=== PATIENT | male | born 1945 | race Caucasian/White ===

== ENCOUNTER 2018-12-16 11:50 | Emergency (ER) | payer MEDICARE, BC ==
[~2018-12-16] VITALS: Ht 172.7 cm; Wt 65.8 kg
[~2018-12-16 11:50] MED LIST: ATOR20TA PO; CARV12.52 PO; HYDR25TA4 PO; LACT1CAP71 PO; LEVO500T90 PO; LOSA100T31 PO; TAMS0.4C34 PO
--- NOTE | 2018-12-16 12:05 | NUR ---
TO ER BED 10, WITH NO COMPLAIN "I JUST WANTED TO TALK TO SOMEBODY". KEPT WARM AND COMFORTABLE, AWAITING MD ATWOOD
--- NOTE | 2018-12-16 12:16 | NUR ---
DR ROYAL AT BEDSIDE
[2018-12-16 12:31] VITALS: BP 121/76
--- NOTE | 2018-12-16 12:31 | NUR ---
Patient discharged to home in stable condition. Written and verbal after care instructions given. Patient verbalizes understanding of instruction.
== END 2018-12-16 12:31 | disposition home or self-care (01) ==
LOC: ER 11:58
DX: R53.1 Weakness (principal); I10 Essential (primary) hypertension; E78.00 Pure hypercholesterolemia, unspecified
CPT/HCPCS: Z7502

== ENCOUNTER 2020-01-05 09:55 | Emergency (ER) | payer MEDICARE, BC ==
[~2020-01-05] VITALS: Ht 167.6 cm; Wt 63.5 kg
--- NOTE | 2020-01-05 10:05 | NUR ---
patient came in to the er c/o Weak/Fall "Been feeling weak last couple days I think im dehydrated. Fell yesterday". On room air, breathing evenly and unlabored. connected to the monitor and pulse ox. kept comfortable, will continue to monitor accordingly.
[2020-01-05] MEDS ORDERED: IV NS 0.9% 500 ML BAG IV ONE (10:30)
[2020-01-05 10:34] LABS: BASOPHILS # (AUTO) 0.1 /CMM (0.0-0.2); BASOPHILS % (AUTO) 1.1 % (0.0-2.0); EOSINOPHILS % (AUTO) 6.6 % (0.0-6.0); HEMATOCRIT 38 % (39-51); HEMOGLOBIN 12.6 g/dL (13.5-17.5); LYMPHOCYTES # (AUTO) 0.5 /CMM (0.8-4.8); LYMPHOCYTES % (AUTO) 11.8 % (20.0-44.0); MEAN CORPUSCULAR HGB CONC 33 g/dl (31.0-36.0); MEAN CORPUSCULAR VOLUME 99 fL (80-96); MONOCYTES # (AUTO) 0.3 /CMM (0.1-1.30); MONOCYTES % (AUTO) 7.5 % (2.0-12.0); NEUTROPHILS # (AUTO) 3.4 /CMM (1.8-8.9); PLATELET COUNT (AUTO) 249 /CMM (150-450); RED BLOOD CELL COUNT(AUTO) 3.81 MIL/uL (4.5-6.0); WHITE BLOOD COUNT (AUTO) 4.6 K/uL (4.3-11.0)
[2020-01-05 10:41] LABS: CALCIUM, SERUM 9.4 mg/dL (8.5-10.1); CREATININE 1.2 mg/dL (0.6-1.3); POTASSIUM 4.2 mmol/L (3.5-5.1)
[2020-01-05 10:46] LABS: ALBUMIN 3.8 g/dL (3.4-5.0); BILIRUBIN,DIRECT 0.2 mg/dL (0.0-0.2); BILIRUBIN,TOTAL 0.4 mg/dL (0.2-1.0); TOTAL PROTEIN, SERUM 7.5 g/dL (6.4-8.2)
[2020-01-05 10:53] LABS: APPEARANCE,URINE Clear (CLEAR); BILIRUBIN,URINE Negative (NEGATIVE); BLOOD, URINE Negative Ery/uL (NEGATIVE); COLOR,URINE Yellow (YELLOW); KETONES,URINE Negative (NEGATIVE); LEUKOCYTE ESTERASE ,URINE Negative (NEGATIVE); NITRITE, URINE Negative (NEGATIVE); PROTEIN,URINE Negative (NEGATIVE); UGLUCOSE Negative (NEGATIVE); UROBILINOGEN,URINE 0.2 EU/dL (0.2)
--- NOTE | 2020-01-05 11:17 | NUR ---
wheeled patient via rney for ct scan
--- NOTE | 2020-01-05 11:28 | NUR ---
Pt is back from the ct scan.
[2020-01-05 12:12] VITALS: BP 110/66
--- NOTE | 2020-01-05 12:14 | NUR ---
Patient discharged to home in stable condition. Written and verbal after care instructions given. Patient verbalizes understanding of instruction.IV removed. Catheter intact and site benign. Pressure and 4x4 applied to site. No bleeding noted.
== END 2020-01-05 12:14 | disposition home or self-care (01) ==
LOC: ER 09:58
DX: R53.1 Weakness (principal); E87.1 Hypo-osmolality and hyponatremia; I10 Essential (primary) hypertension; E78.00 Pure hypercholesterolemia, unspecified; Z60.2 Problems related to living alone; Z79.899 Other long term (current) drug therapy
CPT/HCPCS: 36415; 70450; 70486; 72125; 80048; 80076; 81001; 82962; 85025; 99285; J7040; 81000-TC

== ENCOUNTER 2020-01-21 10:06 | Emergency (ER) | payer MEDICARE, BC ==
[~2020-01-21] VITALS: Ht 172.7 cm; Wt 70.3 kg
[2020-01-21] MEDS ORDERED: IV NS 0.9% 1,000 ML BAG IV ONE (10:30)
--- NOTE | 2020-01-21 10:37 | NUR ---
patient came in to the er c/o weakness 1 1/2 days and "i feel dehydrated". On room air, breathing evenly and unlabored. connected to the monitor and pulse ox. kept comfortable, will continue to monitor accordingly.
[2020-01-21] MEDS ORDERED: VALS320T16 PO (11:09)
[2020-01-21] MEDS ORDERED: BUDE10.2 INH (11:09)
[2020-01-21] MEDS ORDERED: DUTA0.5C16 PO (11:09)
[2020-01-21] MEDS ORDERED: IMIP25TA6 PO (11:09)
[2020-01-21] MEDS ORDERED: FLUT1BLS INH (11:09)
[2020-01-21] MEDS ORDERED: AMLO5TAB9 PO (11:09)
[2020-01-21] MEDS ORDERED: ALBU18HF2 INH (11:09)
[2020-01-21 11:10] VITALS: BP 140/81
== END 2020-01-21 11:10 | disposition home or self-care (01) ==
LOC: ER 10:17
DX: E86.0 Dehydration (principal); I10 Essential (primary) hypertension; E78.00 Pure hypercholesterolemia, unspecified; Z60.2 Problems related to living alone; Z79.899 Other long term (current) drug therapy
CPT/HCPCS: 82962; 96360; 99283; J7030

== ENCOUNTER 2020-02-06 08:11 | Emergency (ER) | payer MEDICARE, BC ==
[~2020-02-06] VITALS: Ht 172.7 cm; Wt 72.6 kg
[~2020-02-06 08:11] MED LIST changes: +ALBU18HF2 INH; +AMLO5TAB9 PO; +BUDE10.2 INH; -CARV12.52 PO; +DUTA0.5C16 PO; +FLUT1BLS INH; -HYDR25TA4 PO; +IMIP25TA6 PO; -LEVO500T90 PO; -LOSA100T31 PO; +VALS320T16 PO
--- NOTE | 2020-02-06 08:12 | NUR ---
CAME IN FOR WORSENING SOB, TO ER BED 8, HOOKED TO MONITOR AND POX, O2 SATURATION AT 98% RA, PROVIDED W PILLABRAN AND BLANKET, DR YU AT BEDSIDE
--- NOTE | 2020-02-06 08:42 | NUR ---
WAREHOUSE CONSULTANT AT BEDSIDE
[2020-02-06 08:50] LABS: BASOPHILS % (AUTO) 0.7 % (0.0-2.0); EOSINOPHILS % (AUTO) 7.2 % (0.0-6.0); HEMATOCRIT 34 % (39-51); HEMOGLOBIN 11.4 g/dL (13.5-17.5); LYMPHOCYTES # (AUTO) 0.8 /CMM (0.8-4.8); LYMPHOCYTES % (AUTO) 25.6 % (20.0-44.0); MEAN CORPUSCULAR HGB CONC 34 g/dl (31.0-36.0); MEAN CORPUSCULAR VOLUME 98 fL (80-96); MONOCYTES # (AUTO) 0.3 /CMM (0.1-1.30); MONOCYTES % (AUTO) 10.5 % (2.0-12.0); NEUTROPHILS # (AUTO) 1.7 /CMM (1.8-8.9); PLATELET COUNT (AUTO) 239 /CMM (150-450); RED BLOOD CELL COUNT(AUTO) 3.46 MIL/uL (4.5-6.0); WHITE BLOOD COUNT (AUTO) 3.1 K/uL (4.3-11.0)
[2020-02-06 09:08] LABS: CARBON DIOXIDE 26 mmol/L (21-32); CHLORIDE 96 mmol/L (98-107); CREATININE 0.9 mg/dL (0.6-1.3); GLUCOSE 92 mg/dL (74-106); POTASSIUM 4.1 mmol/L (3.5-5.1); SODIUM SERUM 132 mmol/L (136-145); UREA NITROGEN, BLOOD 9 mg/dL (7-18)
[2020-02-06 09:15] LABS: B-TYPE NATRIURETIC PEPTIDE 297 PG/ML (0-125)
[2020-02-06] MEDS ORDERED: ALBUTEROL FS 2.5 MG/3 ML VIAL.NEB ONE (09:27)
[2020-02-06] MEDS ORDERED: IPRATROPIUM NEB FS 0.5 MG/2.5 ML AMPUL.NEB ONE (09:27)
[2020-02-06] MEDS ORDERED: IV NS 0.9% 500 ML IV ONE (09:30)
[2020-02-06] MEDS ORDERED: IPRATROPIUM NEB FS 0.5 MG/2.5 ML AMPUL.NEB NEB ONE (09:30)
[2020-02-06] MEDS ORDERED: ALBUTEROL FS 2.5 MG/3 ML VIAL.NEB NEB ONE (09:30)
--- NOTE | 2020-02-06 09:30 | NUR ---
PATIENT REFUSED BREATHING TX, MADE MD AWARE
--- NOTE | 2020-02-06 10:10 | NUR ---
IV removed. Catheter intact and site benign. Pressure and 4x4 applied to site. No bleeding noted.Patient discharged to home in stable condition. Written and verbal after care instructions given. Patient verbalizes understanding of instruction.
[2020-02-06 10:11] VITALS: BP 141/87
== END 2020-02-06 10:11 | disposition home or self-care (01) ==
LOC: ER 08:11
DX: E86.0 Dehydration (principal); J44.9 Chronic obstructive pulmonary disease, unspecified; I10 Essential (primary) hypertension; E78.5 Hyperlipidemia, unspecified; N40.0 Benign prostatic hyperplasia without lower urinary tract symptoms; F17.200 Nicotine dependence, unspecified, uncomplicated; Z60.2 Problems related to living alone; Z79.899 Other long term (current) drug therapy
CPT/HCPCS: 36415; 71045; 80048; 83880; 84484; 85025; 93005 ×2; 99285; J7040

== ENCOUNTER 2020-02-15 07:09 | Emergency (ER) | payer MEDICARE, BC ==
[~2020-02-15] VITALS: Ht 172.7 cm; Wt 70.3 kg
--- NOTE | 2020-02-15 07:23 | NUR ---
PATIENT CAME TO ER BED 11 C/O "I FEEL DRY AND DEHYDRATED." PATIENT STATES THAT HE WAKE SUP IN THE MDIDLE OF THE NIGHT TO URINATE AND HE FEELS DRY. PATIENT DENIES PAIN, SOB, DIZZINESS, NOR NAUSEA. PATIENT IS AAOX4. BREATHING EVENLY AND UNLABORED ON ROOM AIR.
--- NOTE | 2020-02-15 07:24 | NUR ---
REPORT GIVEN TO MORTEZA DUNNE FOR PACO.
[2020-02-15] MEDS ORDERED: IV NS 0.9% 1,000 ML BAG IV ONE (07:30)
[2020-02-15 07:47] LABS: BASOPHILS % (AUTO) 0.8 % (0.0-2.0); EOSINOPHILS % (AUTO) 6.1 % (0.0-6.0); HEMATOCRIT 36 % (39-51); HEMOGLOBIN 11.9 g/dL (13.5-17.5); LYMPHOCYTES # (AUTO) 0.8 /CMM (0.8-4.8); LYMPHOCYTES % (AUTO) 22.5 % (20.0-44.0); MEAN CORPUSCULAR HGB CONC 33 g/dl (31.0-36.0); MEAN CORPUSCULAR VOLUME 98 fL (80-96); MONOCYTES # (AUTO) 0.4 /CMM (0.1-1.30); MONOCYTES % (AUTO) 10.3 % (2.0-12.0); NEUTROPHILS # (AUTO) 2.1 /CMM (1.8-8.9); NEUTROPHILS % (AUTO) 60.3 % (43.0-81.0); PLATELET COUNT (AUTO) 245 /CMM (150-450); RED BLOOD CELL COUNT(AUTO) 3.66 MIL/uL (4.5-6.0); WHITE BLOOD COUNT (AUTO) 3.6 K/uL (4.3-11.0)
[2020-02-15 07:54] LABS: CALCIUM, SERUM 9.2 mg/dL (8.5-10.1); CREATININE 0.9 mg/dL (0.6-1.3)
[2020-02-15 08:47] VITALS: BP 138/81
== END 2020-02-15 08:48 | disposition home or self-care (01) ==
LOC: ER 07:09
DX: E86.0 Dehydration (principal); I10 Essential (primary) hypertension; E78.5 Hyperlipidemia, unspecified; J44.9 Chronic obstructive pulmonary disease, unspecified; E78.00 Pure hypercholesterolemia, unspecified; Z60.2 Problems related to living alone; Z79.899 Other long term (current) drug therapy
CPT/HCPCS: 36415; 80048; 85025; 96360; 99283; J7030

== ENCOUNTER 2020-03-13 09:49 | Emergency (ER) | payer MEDICARE, BC ==
[~2020-03-13] VITALS: Ht 167.6 cm; Wt 54.4 kg
--- NOTE | 2020-03-13 10:08 | NUR ---
Feeling weak since this morning. Patient a/ox4, ambulatory with steady gait. No distress noted. Needs attended. Dr. Olmos at bedside for eval. Patient refusing all other medical interventions except for IV fluids. Explained risks and benefits, still refused.
[2020-03-13 10:25] LABS: BASOPHILS % (AUTO) 0.6 % (0.0-2.0); EOSINOPHILS % (AUTO) 5.7 % (0.0-6.0); HEMATOCRIT 34 % (39-51); HEMOGLOBIN 11.6 g/dL (13.5-17.5); LYMPHOCYTES # (AUTO) 0.6 /CMM (0.8-4.8); LYMPHOCYTES % (AUTO) 15.8 % (20.0-44.0); MEAN CORPUSCULAR HGB CONC 34 g/dl (31.0-36.0); MEAN CORPUSCULAR VOLUME 98 fL (80-96); MONOCYTES # (AUTO) 0.4 /CMM (0.1-1.30); NEUTROPHILS # (AUTO) 2.5 /CMM (1.8-8.9); NEUTROPHILS % (AUTO) 66.9 % (43.0-81.0); PLATELET COUNT (AUTO) 255 /CMM (150-450); RED BLOOD CELL COUNT(AUTO) 3.47 MIL/uL (4.5-6.0); WHITE BLOOD COUNT (AUTO) 3.7 K/uL (4.3-11.0)
[2020-03-13] MEDS ORDERED: IV NS 0.9% 500 ML IV ONE (10:30)
[2020-03-13 10:33] LABS: CALCIUM, SERUM 8.8 mg/dL (8.5-10.1); CREATININE 0.9 mg/dL (0.6-1.3); POTASSIUM 4.1 mmol/L (3.5-5.1)
--- NOTE | 2020-03-13 11:11 | NUR ---
PATIENT REFUSED EKG, EXPLAINED RISKS AND BENEFITS STILL REFUSED.
--- NOTE | 2020-03-13 11:12 | NUR ---
Patient a/ox4, ambulatory with steady gait. No dsitress noted. IV removed. Catheter intact and site benign. Pressure and 4x4 applied to site. No bleeding noted.Patient discharged to home in stable condition. Written and verbal after care instructions given. Patient verbalizes understanding of instruction.
[2020-03-13 11:13] VITALS: BP 170/91
== END 2020-03-13 11:13 | disposition home or self-care (01) ==
LOC: ER 09:57
DX: E86.0 Dehydration (principal); R53.1 Weakness; I10 Essential (primary) hypertension; E78.5 Hyperlipidemia, unspecified; J44.9 Chronic obstructive pulmonary disease, unspecified; N40.0 Benign prostatic hyperplasia without lower urinary tract symptoms; Z60.2 Problems related to living alone; Z79.899 Other long term (current) drug therapy
CPT/HCPCS: 80048; 85025; 93005; 99284; J7040; 36415

== ENCOUNTER 2020-07-09 09:18 | Emergency (ER) | payer MEDICARE, BC ==
[~2020-07-09] VITALS: Ht 172.7 cm; Wt 70.3 kg
[~2020-07-09 09:18] MED LIST changes: +AMLO-212 PO; -AMLO5TAB9 PO
--- NOTE | 2020-07-09 09:38 | NUR ---
PT AMBULATORY TO ER CHAIR 1 C/O GENERALIZED WEAKNESS AND FEELING OF DEHYDRATION X 2 DAYS. DENIES ANY FEVER, FLU LIKE SYMPTOMS. PT SEEN IN ED MULTIPLE TIMES FOR SAME COMPLAINTS. STABLE VITALS. NAD NOTED. AWAITING MD ATWOOD.
--- NOTE | 2020-07-09 09:43 | NUR ---
DR CONDE AT BEDSIDE FOR EVAL.
[2020-07-09] MEDS ORDERED: IV NS 0.9% 1,000 ML BAG IV ONE (10:00)
[2020-07-09 10:19] LABS: BASOPHILS # (AUTO) 0.1 /CMM (0.0-0.2); BASOPHILS % (AUTO) 1.3 % (0.0-2.0); EOSINOPHILS % (AUTO) 11.2 % (0.0-6.0); HEMATOCRIT 37 % (39-51); HEMOGLOBIN 12.4 g/dL (13.5-17.5); LYMPHOCYTES # (AUTO) 0.8 /CMM (0.8-4.8); LYMPHOCYTES % (AUTO) 20.7 % (20.0-44.0); MEAN CORPUSCULAR HGB CONC 34 g/dl (31.0-36.0); MEAN CORPUSCULAR VOLUME 99 fL (80-96); MONOCYTES # (AUTO) 0.4 /CMM (0.1-1.30); MONOCYTES % (AUTO) 9.3 % (2.0-12.0); NEUTROPHILS # (AUTO) 2.2 /CMM (1.8-8.9); NEUTROPHILS % (AUTO) 57.5 % (43.0-81.0); PLATELET COUNT (AUTO) 254 /CMM (150-450); RED BLOOD CELL COUNT(AUTO) 3.75 MIL/uL (4.5-6.0); WHITE BLOOD COUNT (AUTO) 3.8 K/uL (4.3-11.0)
[2020-07-09 10:21] LABS: CREATININE 1.1 mg/dL (0.6-1.3); POTASSIUM 4.2 mmol/L (3.5-5.1)
--- NOTE | 2020-07-09 10:22 | NUR ---
PATIENT REFUSED CXR. EXPLAINED RISKS AND BENEFITS STILL REFUSED.
[2020-07-09 10:27] LABS: ALBUMIN 3.3 g/dL (3.4-5.0); BILIRUBIN,DIRECT 0.1 mg/dL (0.0-0.2); BILIRUBIN,TOTAL 0.4 mg/dL (0.2-1.0); TOTAL PROTEIN, SERUM 7.2 g/dL (6.4-8.2)
--- NOTE | 2020-07-09 10:51 | NUR ---
PATIENT A/OX4, BREATHING EVEN AND UNLABORED, NO SOB NOTED. NEEDS ATTENDED. IV removed. Catheter intact and site benign. Pressure and 4x4 applied to site. No bleeding noted.Patient discharged to home in stable condition. Written and verbal after care instructions given. Patient verbalizes understanding of instruction.
[2020-07-09 10:52] VITALS: BP 138/85
== END 2020-07-09 10:52 | disposition home or self-care (01) ==
LOC: ER 09:18
DX: R53.1 Weakness (principal); E87.1 Hypo-osmolality and hyponatremia; F10.10 Alcohol abuse, uncomplicated; E86.0 Dehydration; I10 Essential (primary) hypertension; E78.5 Hyperlipidemia, unspecified; J44.9 Chronic obstructive pulmonary disease, unspecified; E78.00 Pure hypercholesterolemia, unspecified; F17.200 Nicotine dependence, unspecified, uncomplicated; Y90.0 Blood alcohol level of less than 20 mg/100 ml; Z60.2 Problems related to living alone; Z79.899 Other long term (current) drug therapy
CPT/HCPCS: 80048; 80076; 80320; 84484; 85025; 93005; 96360; 99284; J7030; G0480

== ENCOUNTER 2020-07-15 08:38 | Emergency (ER) | payer MEDICARE, BC ==
[~2020-07-15] VITALS: Ht 167.6 cm; Wt 70.3 kg
--- NOTE | 2020-07-15 08:38 | NUR ---
PT BIB SELF C/O "I HAVING SOB AND I FEEL DEHYDRATED" PT IS AAOX4, NOT IN RESPIRATORY DISTRESS, HOOKED TO BOTTOM WORKER, KEPT RESTED AND COMFORTABLE. WILL CONTINUE TO MONITOR.
--- NOTE | 2020-07-15 08:50 | NUR ---
IV LINE ESTABLISHED BLOOD DRAWN AND SENT TO LAB.
--- NOTE | 2020-07-15 08:58 | NUR ---
SEEN AND EXAMINED BY .
[2020-07-15] MEDS ORDERED: IV NS 0.9% 1,000 ML IV ONE (09:00)
[2020-07-15 09:21] LABS: CREATININE 0.9 mg/dL (0.6-1.3); POTASSIUM 4.3 mmol/L (3.5-5.1)
[2020-07-15 09:49] VITALS: BP 138/78
--- NOTE | 2020-07-15 09:49 | NUR ---
IV removed. Catheter intact and site benign. Pressure and 4x4 applied to site. No bleeding noted. Patient discharged to home in stable condition. Written and verbal after care instructions given. Patient verbalizes understanding of instruction.
== END 2020-07-15 09:50 | disposition home or self-care (01) ==
LOC: ER 08:47
DX: E86.0 Dehydration (principal); E87.1 Hypo-osmolality and hyponatremia; I10 Essential (primary) hypertension; E78.5 Hyperlipidemia, unspecified; J44.9 Chronic obstructive pulmonary disease, unspecified; F10.10 Alcohol abuse, uncomplicated; F17.200 Nicotine dependence, unspecified, uncomplicated; Y90.9 Presence of alcohol in blood, level not specified; Z60.2 Problems related to living alone; Z79.899 Other long term (current) drug therapy
CPT/HCPCS: 36415; 80048; 96360; 99283; J7030

== ENCOUNTER 2020-07-26 08:15 | Emergency (ER) | payer MEDICARE, BC ==
[~2020-07-26] VITALS: Ht 172.7 cm; Wt 70.3 kg
[~2020-07-26 08:15] MED LIST changes: -DUTA0.5C16 PO; +DUTA0.5C37 PO
--- NOTE | 2020-07-26 08:15 | NUR ---
BIB SELF "I FEEL DEHYDRATED" PATIENT A/OX4, BREATHING EVEN AND UNLABORED, NO SOB NOTED, CHANGED INTO A GOWN, ATTACHED TO THE TOPLINE BEADING MACHINE TENDER.
--- NOTE | 2020-07-26 08:20 | NUR ---
IV LINE ESTABLISHED ON LEFT HAND G20, BLOOD DRAWN AND SENT TO LAB.
[2020-07-26] MEDS ORDERED: IV NS 0.9% 1,000 ML IV ONE (08:30)
[2020-07-26 08:37] LABS: BASOPHILS # (AUTO) 0.1 /CMM (0.0-0.2); BASOPHILS % (AUTO) 1.4 % (0.0-2.0); EOSINOPHILS % (AUTO) 3.7 % (0.0-6.0); HEMATOCRIT 34 % (39-51); HEMOGLOBIN 11.6 g/dL (13.5-17.5); LYMPHOCYTES % (AUTO) 21.5 % (20.0-44.0); MEAN CORPUSCULAR HGB CONC 34 g/dl (31.0-36.0); MEAN CORPUSCULAR VOLUME 97 fL (80-96); MONOCYTES # (AUTO) 0.4 /CMM (0.1-1.30); MONOCYTES % (AUTO) 8.2 % (2.0-12.0); NEUTROPHILS % (AUTO) 65.2 % (43.0-81.0); PLATELET COUNT (AUTO) 290 /CMM (150-450); RED BLOOD CELL COUNT(AUTO) 3.52 MIL/uL (4.5-6.0); WHITE BLOOD COUNT (AUTO) 4.6 K/uL (4.3-11.0)
[2020-07-26 08:52] LABS: CREATININE 0.9 mg/dL (0.6-1.3); POTASSIUM 3.8 mmol/L (3.5-5.1)
[2020-07-26 09:52] VITALS: BP 153/90
== END 2020-07-26 09:52 | disposition home or self-care (01) ==
LOC: ER 08:16
DX: R53.83 Other fatigue (principal); E87.1 Hypo-osmolality and hyponatremia; D64.9 Anemia, unspecified; E86.0 Dehydration; I10 Essential (primary) hypertension; E78.5 Hyperlipidemia, unspecified; J44.9 Chronic obstructive pulmonary disease, unspecified; N40.0 Benign prostatic hyperplasia without lower urinary tract symptoms; F17.200 Nicotine dependence, unspecified, uncomplicated; Z60.2 Problems related to living alone; Z79.899 Other long term (current) drug therapy
CPT/HCPCS: 36415; 71045; 80048; 85025; 93005; 96360; 99285; J7030

== ENCOUNTER 2020-08-01 08:09 | Emergency (ER) | payer MEDICARE, BC ==
[~2020-08-01] VITALS: Ht 167.6 cm; Wt 59.0 kg
[2020-08-01 08:22] VITALS: BP 122/74
[2020-08-01] MEDS ORDERED: predniSONE 20 MG TABLET ONE (08:35)
[2020-08-01] MEDS ORDERED: IPRATROPIUM NEB FS 0.5 MG/2.5 ML AMPUL.NEB ONE (08:47)
[2020-08-01] MEDS ORDERED: ALBUTEROL FS 2.5 MG/3 ML VIAL.NEB ONE (08:47)
[2020-08-01] MEDS: ALBUTEROL FS 2.5 MG/3 ML VIAL.NEB NEB ONE (08:51)
[2020-08-01] MEDS: IPRATROPIUM NEB FS 0.5 MG/2.5 ML AMPUL.NEB NEB ONE (08:51)
[2020-08-01] MEDS: IV NS 0.9% 1,000 ML BAG IV ONE (08:57)
[2020-08-01] MEDS: predniSONE 20 MG TABLET PO ONE (08:57)
--- NOTE | 2020-08-01 08:58 | NUR ---
ONGOING BREATHING TX
== END 2020-08-01 09:40 | disposition home or self-care (01) ==
LOC: ER 08:13
DX: E86.0 Dehydration (principal); R06.02 Shortness of breath; I10 Essential (primary) hypertension; E78.5 Hyperlipidemia, unspecified; J44.9 Chronic obstructive pulmonary disease, unspecified; F10.10 Alcohol abuse, uncomplicated; E78.00 Pure hypercholesterolemia, unspecified; F17.200 Nicotine dependence, unspecified, uncomplicated; Y90.9 Presence of alcohol in blood, level not specified; Z60.2 Problems related to living alone; Z79.899 Other long term (current) drug therapy
CPT/HCPCS: 71045; 94640; 96360; 99283; J7030; J7512

== ENCOUNTER 2020-08-02 07:30 | Emergency (ER) | payer MEDICARE, BC ==
[~2020-08-02] VITALS: Ht 167.6 cm; Wt 67.1 kg
--- NOTE | 2020-08-02 08:15 | NUR ---
"I feel dehydrated. Was here yesterday for same" Patient a/ox4, breathing even and unlabored, no sob noted, needs attended. Patient kept saying "i dont know why i'm here".
[2020-08-02] MEDS ORDERED: IV NS 0.9% 1,000 ML BAG IV ONE (08:30)
[2020-08-02 08:33] LABS: BASOPHILS # (AUTO) 0.1 /CMM (0.0-0.2); BASOPHILS % (AUTO) 0.6 % (0.0-2.0); EOSINOPHILS % (AUTO) 0.3 % (0.0-6.0); HEMATOCRIT 29 % (39-51); HEMOGLOBIN 9.9 g/dL (13.5-17.5); LYMPHOCYTES # (AUTO) 0.6 /CMM (0.8-4.8); LYMPHOCYTES % (AUTO) 7.4 % (20.0-44.0); MEAN CORPUSCULAR HGB CONC 35 g/dl (31.0-36.0); MEAN CORPUSCULAR VOLUME 98 fL (80-96); MONOCYTES # (AUTO) 0.6 /CMM (0.1-1.30); MONOCYTES % (AUTO) 6.7 % (2.0-12.0); NEUTROPHILS # (AUTO) 7.4 /CMM (1.8-8.9); PLATELET COUNT (AUTO) 257 /CMM (150-450); RED BLOOD CELL COUNT(AUTO) 2.93 MIL/uL (4.5-6.0); WHITE BLOOD COUNT (AUTO) 8.7 K/uL (4.3-11.0)
--- NOTE | 2020-08-02 09:11 | NUR ---
Patient a/ox4, breathing even and unlabored, no sob noted, denies pain. IV removed. Catheter intact and site benign. Pressure and 4x4 applied to site. No bleeding noted.Patient discharged to home in stable condition. Written and verbal after care instructions given. Patient verbalizes understanding of instruction.
[2020-08-02 09:12] VITALS: BP 167/92
[2020-08-02 10:26] LABS: CALCIUM, SERUM 8.5 mg/dL (8.5-10.1); CARBON DIOXIDE 25 mmol/L (21-32); CHLORIDE 92 mmol/L (98-107); CREATININE 0.8 mg/dL (0.6-1.3); GLUCOSE 79 mg/dL (74-106); POTASSIUM 4.2 mmol/L (3.5-5.1); SODIUM SERUM 126 mmol/L (136-145); UREA NITROGEN, BLOOD 14 mg/dL (7-18)
== END 2020-08-02 09:13 | disposition home or self-care (01) ==
LOC: ER 07:35
DX: F10.10 Alcohol abuse, uncomplicated (principal); E86.0 Dehydration; I10 Essential (primary) hypertension; J44.9 Chronic obstructive pulmonary disease, unspecified; N40.0 Benign prostatic hyperplasia without lower urinary tract symptoms; E78.00 Pure hypercholesterolemia, unspecified; Z60.2 Problems related to living alone; Z79.899 Other long term (current) drug therapy; Y90.9 Presence of alcohol in blood, level not specified
CPT/HCPCS: 36415; 80048; 84484; 85025; 96360; 99283; J7030

== ENCOUNTER 2020-08-08 06:42 | Emergency (ER) | payer MEDICARE, BC ==
[~2020-08-08] VITALS: Ht 160 cm; Wt 67.1 kg
[2020-08-08 06:53] VITALS: BP 132/98
== END 2020-08-08 07:17 | disposition home or self-care (01) ==
LOC: ER 06:45
DX: R63.1 Polydipsia (principal); E87.1 Hypo-osmolality and hyponatremia; E86.0 Dehydration; D64.9 Anemia, unspecified; I10 Essential (primary) hypertension; E78.5 Hyperlipidemia, unspecified; J44.9 Chronic obstructive pulmonary disease, unspecified; F10.10 Alcohol abuse, uncomplicated; F17.200 Nicotine dependence, unspecified, uncomplicated; Y90.9 Presence of alcohol in blood, level not specified; Z02.89 Encounter for other administrative examinations; Z60.2 Problems related to living alone; Z79.899 Other long term (current) drug therapy

== ENCOUNTER 2020-08-09 07:31 | Emergency (ER) | payer MEDICARE, BC ==
[~2020-08-09] VITALS: Ht 170.2 cm; Wt 70.3 kg
[2020-08-09 07:34] VITALS: BP 162/80
[2020-08-09] MEDS ORDERED: ELECTROLYTE,ORAL 1,000 ML BOTTLE ONE (07:47)
[2020-08-09] MEDS: ELECTROLYTE,ORAL 1,000 ML BOTTLE PO ONE (07:54)
--- NOTE | 2020-08-09 07:55 | NUR ---
Patient discharged to home in stable condition. Written and verbal after care instructions given. Patient verbalizes understanding of instruction.
== END 2020-08-09 07:55 | disposition home or self-care (01) ==
LOC: EDUNIT# 07:31 → ER 07:32
DX: E87.1 Hypo-osmolality and hyponatremia (principal); R63.1 Polydipsia; D64.9 Anemia, unspecified; E86.0 Dehydration; I10 Essential (primary) hypertension; E78.5 Hyperlipidemia, unspecified; J44.9 Chronic obstructive pulmonary disease, unspecified; N40.0 Benign prostatic hyperplasia without lower urinary tract symptoms; F17.200 Nicotine dependence, unspecified, uncomplicated; Z60.2 Problems related to living alone; Z79.899 Other long term (current) drug therapy

== ENCOUNTER → 2020-08-15 | Emergency (ER) | payer MEDICARE, BC ==
[~2020-08-15] VITALS: Ht 172.7 cm; Wt 68.0 kg
[~2020-08-15] MED LIST changes: +ACET325C7 PO; +IV NS 0.9% 1,000 ML BAG IV ONE
--- NOTE | 2020-08-15 07:50 | NUR ---
came in c/o feeling weak, waking up at night to urinate. "i need iv fluids." multiple ed visits for same complain, to ER waiting room. awaiting MD borjas
--- NOTE | 2020-08-15 08:16 | NUR ---
THE PATIENT ALERT AND ORIENTED X4. DENIES PAIN. IN ROOM AIR AND DENIES SOB. RESPIRATION REGULAR AND UNLABORED.
--- NOTE | 2020-08-15 08:17 | NUR ---
STARTED IV ON LEFT FOREARM G 20, GOT BLOOD SPECIMEN AND SENT IT TO THE LAB.
[2020-08-15 08:19] LABS: BASOPHILS % (AUTO) 0.8 % (0.0-2.0); EOSINOPHILS % (AUTO) 1.7 % (0.0-6.0); HEMATOCRIT 34 % (39-51); HEMOGLOBIN 11.6 g/dL (13.5-17.5); LYMPHOCYTES % (AUTO) 18.6 % (20.0-44.0); MEAN CORPUSCULAR HGB CONC 34 g/dl (31.0-36.0); MEAN CORPUSCULAR VOLUME 97 fL (80-96); MONOCYTES # (AUTO) 0.4 /CMM (0.1-1.30); MONOCYTES % (AUTO) 7.5 % (2.0-12.0); NEUTROPHILS # (AUTO) 3.8 /CMM (1.8-8.9); NEUTROPHILS % (AUTO) 71.4 % (43.0-81.0); PLATELET COUNT (AUTO) 300 /CMM (150-450); WHITE BLOOD COUNT (AUTO) 5.4 K/uL (4.3-11.0)
[2020-08-15 08:25] LABS: CALCIUM, SERUM 8.8 mg/dL (8.5-10.1); POTASSIUM 4.3 mmol/L (3.5-5.1)
--- NOTE | 2020-08-15 09:48 | NUR ---
REMOVED LFA G 20 IV LINE, COVERED THE SITE WITH FOLDED 2X2. THE PATIENT IS DISCHARGING.
--- NOTE | 2020-08-15 09:49 | NUR ---
Patient AAO x4. Denies pain. In room air and denies SOB. Respiration regular and unlabored. Patient discharged to home in stable condition. Written and verbal after care instructions given. Patient verbalizes understanding of instruction. The patient left the ER in stable condition.
[2020-08-15 09:50] VITALS: BP 132/74
== END | disposition home or self-care (01) ==
LOC: ER 07:40
DX: E87.1 Hypo-osmolality and hyponatremia (principal); E86.0 Dehydration; I10 Essential (primary) hypertension; E78.5 Hyperlipidemia, unspecified; J44.9 Chronic obstructive pulmonary disease, unspecified; N40.0 Benign prostatic hyperplasia without lower urinary tract symptoms; E78.00 Pure hypercholesterolemia, unspecified; F17.200 Nicotine dependence, unspecified, uncomplicated; F10.10 Alcohol abuse, uncomplicated; Y90.9 Presence of alcohol in blood, level not specified; Z60.2 Problems related to living alone; Z79.899 Other long term (current) drug therapy
CPT/HCPCS: 36415; 80048; 85025; 96360; 99283; J7030